=== PATIENT | male | born 1935 | race Caucasian/White ===

== ENCOUNTER 2025-01-24 14:15 | Emergency (ER) | payer OTHER, SELFPAY ==
[2025-01-24 14:17] VITALS: BP 140/91
--- NOTE | 2025-01-24 15:02 | ED.GENMED ---
History of Present Illness
General
Chief Complaint: Urinary Symptoms
Source: patient, spouse and family
Exam Limitations: none
Time Seen by Provider: 01/24/25 14:55
Nursing documentation reviewed up to this point in time: agreed with
History of Present Illness
History of Present Illness:
89-year-old male with history of HTN, CAD with cardiac stent, osteoporosis with compression fractures of spine, right side postherpetic neuralgia, presents for difficulty urinating and feeling like he is not emptying his bladder.
He states he has been dribbling rather than voiding and it is accompanied by a burning sensation during urination. The symptoms have worsened significantly over the past week.
According to :
In September 2024, patient was seen at [place] ED for pain in right rib area and difficulty urinating. He was diagnosed with UTI and took 10 days of 'an antibiotic.' He had urine retention and had a catheter placed and was admitted for 2 days, the
catheter was removed prior to discharge.
Approximately 3 weeks later he went back to [place] for similar symptoms, had an abdominal pelvis CAT scan and the only finding there was incidental vertebral fractures age-indeterminate
12 days ago back to [place] ED for similar symptoms, they did a CAT scan of his chest and there were incidental compression fractures noted plus questionable areas of metastatic disease in the lungs.
6 days ago he followed up with his neurologist Dr. Escobar at [facility] for his CKD 4 and was referred to urology.
Saw Urologist Dr. Mosley at [facility] who he saw, placed him on Silodosin for an overactive bladder which he has been taking with no relief of symptoms. He has a teleconference follow-up appointment with his urologist in [address] weeks[address]
His PCP Dr. Jacobs has ordered CT scan and PET scan. Pt has PET scan scheduled in 3 days at [place].
Past History
Past History
ED Past Medical History: CAD, HTN and Other (BPH)
ED Past Surgical History: Cardiac (Stent)
Social History
Tobacco: Non-smoker
Personal:
Living: with family
Review of Systems
Review of Systems
Allergies reviewed?: Yes
All Other Systems: ROS reviewed and negative except as documented in HPI and ROS
Constitutional: Reports weight loss (40 pounds in 3 months); Denies fever
Respiratory: Denies trouble breathing
Cardiac: Denies chest pain
ABD/GI: Reports abdominal pain (Patient states discomfort not really pain pointing to suprapubic area) and anorexia ( states appetite has been poor); Denies nausea, vomiting, diarrhea or constipated
: Reports dysuria, frequency and difficulty voiding
Musculoskeletal: Denies edema
Skin: Reports no symptoms
Neurological: Reports no symptoms
Phy Exam
Physical Exam
Physical Exam:
GENERAL: No acute distress. A&Ox3.
CONSTITUTIONAL: Afebrile.
EYES: clear, conjunctivae normal
ENMT: moist mucus membranes, Pharynx nl
RESPIRATORY: Regular respirations, nonlabored, lungs clear.
CARDIOVASCULAR: Regular rate and rhythm, no murmurs, no rubs.
GI: Soft, nontender, normal BS
MUSCULOSKELETAL: Moves with ease. Well perfused. No edema
SKIN: Warm, dry, pink
PSYCH: Normal mood and affect. Well kept, interactive and appropriate
NEUROLOGIC: Awake, alert and oriented. No focal neurological deficits
Course
Orders/Labs/Results
Orders:
Orders
01/24/25 15:00
Bladder Scan- Treatment ONCE
01/24/25 16:03
Complete Blood Count/With Diff Urgent
Comprehensive Metabolic Panel Urgent
01/24/25 16:09
Urinalysis Reflex To Culture Urgent
Date Specimen was Collected: 01/24/25
Time Specimen was Collected: 16:08
Urine Microscopic Reflex Cult Urgent
Urine Culture Urgent
SHERICE Source: U
Specimen Description:
Date Specimen was Collected: 01/24/25
Time Specimen was Collected: 16:08
01/24/25 16:41
Hewitt Placement- Treatment ONCE
Reason for insertion: Acute Retention
Abnormal Lab Results
01/24/25 01/24/25
16:03 16:09
RBC 4.17 L 10^6/uL
(4.70-6.10)
Hgb 11.2 L g/dL
(13.0-18.0)
Hct 35.0 L %
(39.0-52.0)
MCH 26.9 L pg
(27.0-31.0)
MCHC 32.0 L g/dL
(33.0-37.0)
RDW 15.4 H %
(11.5-14.5)
Absolute Monos (auto) 0.7 H 10^3/uL
(0.1-0.6)
Lymphocytes % 15.7 L %
(20.5-51.1)
BUN 39 H mg/dl
(9-20)
Creatinine 2.0 H mg/dL
(0.7-1.3)
Glucose 122 H mg/dl
(70-99)
Total Bilirubin 1.6 H mg/dl
(0.2-1.3)
Alkaline Phosphatase 139 H U/L
(38-126)
Ur Occult Blood Reflex 3+ A
(Negative)
Urine RBC 3-6 A /HPF
(0-2)
Urine Bacteria (Reflex) Moderate A
(Negative)
Urine Albumin (Reflex) 3+ A
(Neg - Trace)
01/24/25 16:03
01/24/25 16:03
Vital Signs
Initial and Last Documented VS:
Initial Vital Signs
Temp Pulse Resp BP Pulse Ox
98.0 F 91 16 140/91 98
01/24/25 14:17 01/24/25 14:17 01/24/25 14:17 01/24/25 14:17 01/24/25 14:17
Last Documented Vital Signs
Temp Pulse Resp BP Pulse Ox
98.0 F 67 26 184/96 100
01/24/25 16:13 01/24/25 17:45 01/24/25 16:30 01/24/25 17:00 01/24/25 17:45
MDM/Problems Addressed
Differential Diagnosis Includes:
UTI in, bladder outlet obstruction, metastatic disease, neurogenic bladder, complication of CKD, interstitial cystitis
MDM/Problems Addressed:
89-year-old male with history of HTN, CAD with cardiac stent, osteoporosis with compression fractures of spine, right side postherpetic neuralgia, presents for difficulty urinating and feeling like he is not emptying his bladder.
He states he has been dribbling rather than voiding and it is accompanied by a burning sensation during urination. The symptoms have worsened significantly over the past week.
According to :
In September 2024, patient was seen at [place] ED for pain in right rib area and difficulty urinating. He was diagnosed with UTI and took 10 days of 'an antibiotic.' He had urine retention and had a catheter placed and was admitted for 2 days, the
catheter was removed prior to discharge.
Approximately 3 weeks later he went back to [place] for similar symptoms, had an abdominal pelvis CAT scan and the only finding there was incidental vertebral fractures age-indeterminate
12 days ago back to [place] ED for similar symptoms, they did a CAT scan of his chest and there were incidental compression fractures noted plus questionable areas of metastatic disease in the lungs.
6 days ago he followed up with his neurologist Dr. Escobar at [place] for his CKD 4 and was referred to urology.
Saw Urologist Dr. Mosley at [facility] who he saw, placed him on Silodosin for an overactive bladder which he has been taking with no relief of symptoms. He has a teleconference follow-up appointment with his urologist in [address] weeks[address]
His PCP Dr. Jacobs has ordered CT scan and PET scan. Pt has PET scan scheduled in 3 days at [place].
Also spoke with daughter and son at bedside:
CAT scan is canceled because daughter pulled up on her phone a CAT scan abdomen and pelvis from 01/10 with the findings of age-indeterminate compression fracture of T12 old compression fracture L1 old compression fractures L2 and 3
Moderate height prostate hypertrophy mild induration and stranding about the prostate prostatitis cannot be excluded mild aneurysmal dilatation of the infrarenal abdominal aorta up to 3.4 cm
Patient also had a CT of chest abdomen pelvis with a 8 mm pulmonary nodule found which thinks is chronic, new sclerotic foci at T2 and T3 possibly metastatic disease.
Patient is scheduled for PET scan on Sunday.
Pt had 800 ml urine retention. Will leave catheter in and he will f/u with his urologist. Suspect bladder outlet obstruction from enlarged prostate
U/A neg for infection
CBC with no clinically significant abnormality
CMP no clinically significant abnormality. Consistent with his baseline CKD.
Patient is stable for discharge to care of family.
*Pulse Oximetry
SaO2: 98
Oxygen Mode of Delivery: Room air
Patient hypoxic: no
*Critical Care Note
Total Time (30-74mins, 75-104mins- exclusive of procedures): Not Applicable
ED Attending Note
-
Portions of this chart may have been created with voice recognition software.� Occasional wrong word or��sound alike� substitutions may have occurred due to the inherent limitations of voice recognition software.
Discharge Plan
Departure
Patient Disposition: Home (Routine Discharge)
Date of Disposition: 01/24/25
Time of Disposition: 17:28
Patient with high blood pressure during this ER visit?: No
Condition: Fair
Discharge Problem:
Acute retention of urine
Instructions: How to Care for Your Hewitt Catheter, Male, Urinary retention (DC)
Referrals:
Andrzej Mosley MD [Non-Admitting Privileges, Urology] - Call in 1-3 days for appt
Wilian Jacobs DO [Family Provider]
Activity Restrictions/Additional Instructions:
As we discussed, your blood work shows nothing worrisome
Your urinalysis shows no sign of infection
Tylenol or ibuprofen as needed for mild to moderate pain and use your Tylenol with codeine as needed for worse pain.
Call your urologist on Sunday morning, inform of this visit and your Hewitt catheter and ask when they want to see you for follow-up.
Interventions
Interventions:
*Risk Screen - Suicide Last Done: 01/24/25 14:17
*General Assessment Last Done: 01/24/25 15:50
*Neglect/Abuse Screening Last Done: 01/24/25 14:17
*ED- Fall Risk Assessment Last Done: 01/24/25 15:50
*ED COVID-19 Vaccine History Last Done: 01/24/25 15:50
*Nursing Disposition Last Done: 01/24/25 18:07
ED-Male Genitourinary Assessment Last Done: 01/24/25 15:50
Discharge Date and Time
Discharge Date/Time: 01/24/25 18:21
Print Language: MONGOLIAN
[2025-01-24 15:49] VITALS: BMI 20.6
[2025-01-24 15:54] VITALS: BP 148/89
[2025-01-24 16:00] VITALS: BP 165/90
[2025-01-24 16:18] LABS: Urine Character Clear (Clear)
[2025-01-24 16:19] LABS: Hematocrit 35.0 % (39.0-52.0); Hemoglobin 11.2 g/dL (13.0-18.0); Mean Corp Hgb Conc. 32.0 g/dL (33.0-37.0); Mean Corpuscular Volume 83.9 fL (80.0-94.0); Nucleated Red Blood Cells % 0 % (-); Platelet Count 193 10^3/uL (130-400); Red Cell Dist. Width 15.4 % (11.5-14.5)
[2025-01-24 16:26] LABS: Urine Squamous Cell 0-2 /LPF (Few); Urine White Cell 0-2 /HPF (0-5)
[2025-01-24 16:45] LABS: ALT (SGPT) 12 U/L (0-50); AST (SGOT) 20 U/L (17-59); Albumin 3.8 g/dl (3.5-5.0); Alkaline Phosphatase 139 U/L (38-126); Blood Urea Nitrogen 39 mg/dl (9-20); Calcium 8.7 mg/dl (8.4-10.2); Carbon Dioxide 24 mmol/L (22-30); Chloride 107 mmol/L (98-107); Estimated Creatinine Clearance 26 ml/min; Glucose 122 mg/dl (70-99); Potassium 4.0 mmol/L (3.5-5.1); Sodium 140 mmol/L (135-145); Total Protein 6.8 g/dl (6.3-8.2); eGFR 31.51
[2025-01-24 17:00] VITALS: BP 184/96
== END 2025-01-24 18:21 | disposition home or self-care (01) ==
LOC: EMR 14:15
PROVIDERS: Registered Nurse; EMERGENCY PHYSICIAN Emergency Medicine; FAMILY PHYSICIAN Student in an Organized Health Care Education/Training Program
DX: R33.8 Other retention of urine (principal); N40.1 Benign prostatic hyperplasia with lower urinary tract symptoms; I12.9 Hypertensive chronic kidney disease with stage 1 through stage 4 chronic kidney disease, or unspecified chronic kidney disease; N18.4 Chronic kidney disease, stage 4 (severe); M80.08XA Age-related osteoporosis with current pathological fracture, vertebra(e), initial encounter for fracture; I25.10 Atherosclerotic heart disease of native coronary artery without angina pectoris; Z95.5 Presence of coronary angioplasty implant and graft
CPT/HCPCS: 51702; 99283; 80053; 81003; 81015; 85025; 87086